=== PATIENT | male | born 1970 ===

== ENCOUNTER 2021-01-10 06:50 | Outpatient (CLI) | payer OTHER | END 2021-01-10 06:58 | disposition home or self-care (01) | LOC: LAB 06:50 | PROVIDERS: ATTEND Emergency Medicine Pediatric Emergency Medicine | DX: Z03.818 Encounter for observation for suspected exposure to other biological agents ruled out (principal) ==

== ENCOUNTER 2021-01-13 07:31 | Outpatient (CLI) | payer OTHER | END 2021-01-13 07:32 | disposition home or self-care (01) | LOC: LAB 07:31 | PROVIDERS: ATTEND Emergency Medicine Pediatric Emergency Medicine | DX: Z03.818 Encounter for observation for suspected exposure to other biological agents ruled out (principal) ==

== ENCOUNTER 2021-03-07 06:31 | Outpatient (CLI) | payer OTHER | END 2021-03-07 06:43 | disposition home or self-care (01) | LOC: LAB 06:31 | PROVIDERS: ATTEND Emergency Medicine Pediatric Emergency Medicine | DX: Z03.818 Encounter for observation for suspected exposure to other biological agents ruled out (principal) ==